=== PATIENT | female | born 1960 | race Caucasian/White ===

== ENCOUNTER 2020-02-13 17:51 | Emergency (ER) | payer MEDICAID ==
[~2020-02-13] VITALS: Ht 160 cm; Wt 58.1 kg
[~2020-02-13 17:51] MED LIST: CLEOCIN HCL150 MG PO; ERY-TAB500 MG PO; ULTRAM 50MG TAB50 MG PO
[2020-02-13] MEDS ORDERED: PRILOSEC10 MG PO (18:04)
[2020-02-13] MEDS ORDERED: CLARITIN10 MG PO (18:04)
[2020-02-13 18:14] LABS: ABSOLUTE BASOPHILS 0.1 thou/uL (0.0-0.2); ABSOLUTE LYMPHOCYTES 1.4 thou/uL (0.8-5.3); ABSOLUTE MONOCYTES 1.2 thou/uL (0.0-1.2); ABSOLUTE NEUTROPHILS 10.1 thou/uL (1.6-8.1); EOSINOPHILS 0.2 %; HEMOGLOBIN 14.1 gm/dL (12.0-15.0); LYMPHOCYTES 10.6 %; MCH 32.4 pg (26.0-34.0); MCHC 35.2 g/dL (28.0-37.0); MONOCYTES 9.2 %; MPV 7.7 fl. (7.2-11.1); NUCLEATED RBCS 0 /100WBC; PLATELET COUNT* 263 thou/uL (150-400); RBC 4.35 mil/uL (4.20-5.00); RDW-CV 12.4 % (10.5-14.5); WBC 12.8 thou/uL (4.0-11.0)
[2020-02-13 18:26] LABS: CALCIUM 9.3 mg/dL (8.5-10.1); CREATININE 0.8 mg/dL (0.6-1.3); POTASSIUM 3.6 mmol/L (3.5-5.1); PROTIME 10.7 Seconds (9.20-11.50)
[2020-02-13 18:38] LABS: ALBUMIN 3.9 g/dL (3.4-5.0); CK-MB MASS 0.6 ng/mL (<0.5-3.6); MAGNESIUM 2.1 mg/dL (1.8-2.4); TOTAL BILIRUBIN 0.6 mg/dL (<0.1-1.0); TOTAL PROTEIN 8.1 g/dL (6.4-8.2)
[2020-02-13] MEDS ORDERED: NORCO 5-325 TA1 EAC2 PO (18:41)
[2020-02-13] MEDS ORDERED: CLEOCIN HCL300 MG PO (18:41)
[2020-02-13] MEDS ORDERED: ZESTORETIC 20-1 EACH PO (18:41)
[2020-02-13 18:48] VITALS: BP 159/65
--- NOTE | 2020-02-14 13:07 | EKG ---
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
== END 2020-02-13 18:49 | disposition home or self-care (01) ==
LOC: M.ERS 17:51
PROVIDERS: Family Medicine
DX: I10 Essential (primary) hypertension (principal); K04.7 Periapical abscess without sinus; F17.210 Nicotine dependence, cigarettes, uncomplicated; Z88.0 Allergy status to penicillin; Z88.6 Allergy status to analgesic agent